=== PATIENT | female | born 1960 | race Caucasian/White ===

== ENCOUNTER 2021-03-21 10:56 | Emergency (ER) | payer OTHER ==
[~2021-03-21] VITALS: Ht 167.6 cm; Wt 54.4 kg
[2021-03-21 11:25] LABS: URINE BILIRUBIN NEGATIVE (Negative); URINE BLOOD NEGATIVE (Negative); URINE CLARITY CLEAR; URINE COLOR YELLOW; URINE GLUCOSE-RANDOM NEGATIVE (Negative); URINE KETONES NEGATIVE (Negative); URINE LEUKOCYTES-REFLEX NEGATIVE (Negative); URINE NITRITE-REFLEX NEGATIVE (Negative); URINE PROTEIN NEGATIVE (Negative); URINE UROBILINOGEN 0.2 E.U./dl (0.2-1.0)
[2021-03-21 12:02] LABS: ABSOLUTE BASOPHILS 0.1 thou/uL (0.0-0.2); ABSOLUTE EOSINOPHILS 0.1 thou/uL (0.0-0.7); ABSOLUTE LYMPHOCYTES 1.7 thou/uL (0.8-5.3); ABSOLUTE MONOCYTES 0.6 thou/uL (0.0-1.2); ABSOLUTE NEUTROPHILS 5.5 thou/uL (1.6-8.1); BASOPHILS 1.2 %; EOSINOPHILS 1.3 %; HEMATOCRIT 43.9 % (37.0-47.0); HEMOGLOBIN 14.4 gm/dL (12.0-15.0); LYMPHOCYTES 20.8 %; MCH 29.8 pg (26.0-34.0); MCHC 32.8 g/dL (28.0-37.0); MONOCYTES 7.6 %; NUCLEATED RBCS 0 /100WBC; PLATELET COUNT* 223 thou/uL (150-400); POLYS 69.1 %; RBC 4.82 mil/uL (4.20-5.00); RDW-CV 13.2 % (10.5-14.5)
[2021-03-21 12:16] LABS: CREATININE 0.8 mg/dL (0.6-1.3); POTASSIUM 3.8 mmol/L (3.5-5.1)
[2021-03-21 12:20] LABS: TOTAL BILIRUBIN 0.3 mg/dL (<0.1-1.0); TOTAL PROTEIN 7.3 g/dL (6.4-8.2)
[2021-03-21] MEDS ORDERED: NAPROSYN500 MG PO (13:27)
[2021-03-21] MEDS ORDERED: MEDROLDOSEPACK PO (13:27)
[2021-03-21] MEDS ORDERED: FLEXERIL PO (13:27)
[2021-03-21 13:49] VITALS: BP 156/91
== END 2021-03-21 13:49 | disposition home or self-care (01) ==
LOC: M.ERS 10:56
PROVIDERS: Nurse Practitioner Family
DX: M54.50 Low back pain, unspecified (principal); I10 Essential (primary) hypertension; J44.9 Chronic obstructive pulmonary disease, unspecified; Z88.5 Allergy status to narcotic agent; Z88.2 Allergy status to sulfonamides

== ENCOUNTER 2021-04-14 10:57 | Emergency (ER) | payer OTHER ==
[~2021-04-14] VITALS: Ht 170.2 cm; Wt 61.2 kg
[~2021-04-14 10:57] MED LIST: FLEXERIL PO; MEDROLDOSEPACK PO; NAPROSYN500 MG PO
[2021-04-14 11:31] LABS: URINE BLOOD 3+ (Negative); URINE CLARITY CLOUDY; URINE COLOR BROWN; URINE GLUCOSE-RANDOM NEGATIVE (Negative); URINE KETONES NEGATIVE (Negative); URINE NITRITE-REFLEX NEGATIVE (Negative); URINE PROTEIN 2+ (Negative); URINE SPECIFIC GRAVITY 1.025 (1.005-1.030)
[2021-04-14 11:34] LABS: URINE BILIRUBIN 1+ (Negative); URINE LEUKOCYTES-REFLEX 2+ (Negative)
[2021-04-14 11:35] LABS: ICTOTEST (BILI CONFIRMATORY) Negative (Negative)
[2021-04-14 11:40] LABS: BACTERIA-REFLEX >30 Many /HPF (None Seen); URINE RBC >20 Many /HPF (0-2); URINE WBC-REFLEX 0-5 Rare /HPF (0-5)
[2021-04-14 11:41] LABS: CASTS None Seen /LPF (None Seen); CRYSTALS None Seen /LPF (None Seen); MUCUS None Seen strn/LPF (None Seen); SQUAMOUS 4-10 Moderate /LPF (0-3)
[2021-04-14 12:00] LABS: ABSOLUTE EOSINOPHILS 0.2 thou/uL (0.0-0.7); ABSOLUTE LYMPHOCYTES 1.8 thou/uL (0.8-5.3); ABSOLUTE MONOCYTES 0.5 thou/uL (0.0-1.2); ABSOLUTE NEUTROPHILS 4.8 thou/uL (1.6-8.1); BASOPHILS 0.5 %; EOSINOPHILS 3.2 %; HEMATOCRIT 43.4 % (37.0-47.0); HEMOGLOBIN 14.3 gm/dL (12.0-15.0); MCHC 32.9 g/dL (28.0-37.0); MCV 91.3 fL (80.0-100.0); NUCLEATED RBCS 0 /100WBC; PLATELET COUNT* 212 thou/uL (150-400); POLYS 65.3 %; RBC 4.76 mil/uL (4.20-5.00); RDW-CV 13.1 % (10.5-14.5); WBC 7.4 thou/uL (4.0-11.0)
[2021-04-14 12:11] LABS: CREATININE 0.7 mg/dL (0.6-1.3); POTASSIUM 3.6 mmol/L (3.5-5.1)
[2021-04-14 12:16] LABS: TOTAL BILIRUBIN 0.4 mg/dL (<0.1-1.0); TOTAL PROTEIN 7.1 g/dL (6.4-8.2)
[2021-04-14] MEDS ORDERED: PROAIR HFA8.5 GM INH (12:22)
[2021-04-14] MEDS ORDERED: PREDNISONE 20 M20 MG PO (12:22)
[2021-04-14] MEDS ORDERED: CEPHALEXIN500 MG PO (12:22)
[2021-04-14 12:42] VITALS: BP 163/78
--- NOTE | 2021-04-15 15:17 | EKG ---
[place] [address] ELECTROCARDIOGRAM REPORT Name: DOLORESBETTYE Treva Room: [facility]#: [id number] Admission: 04/14/21 Attend Phys: Discharge: 04/14/21 Date of : 58 Date of Service: 04/14/21 1140 Report #: [id number] THIS REPORT FOR: //name// [facility] ED Test Date: 2021-04-14 Test Time: 11:40:50 Pat Name: BETTYE BERNAL Department: Room: Gender: Equipment Installation Professional: : 1960 Requested By: Ольга Vargas Order Number: [id number] MD: Tulio Gibbs Measurements Intervals [place] Rate: 102 P: 106 MN: 157 QRS: 86 QRSD: 83 T: 122 QT: 330 QTc: 430 Interpretive Statements Sinus tachycardia Borderline right axis deviation LVH with secondary repolarization abnormality Anterior Q waves, possibly due to LVH No previous ECG available for comparison Electronically Signed On 04-15-2021 15:16:59 [employer] by Tulio Gibbs [email or web address] <ELECTRONICALLY SIGNED> By: Tulio Gibbs MD, [facility] 04/15/21 1516 1140 1140 Tulio Gibbs MD, [facility] /EPI
== END 2021-04-14 12:43 | disposition home or self-care (01) ==
LOC: M.ERS 10:57
PROVIDERS: Physician Assistant
DX: N39.0 Urinary tract infection, site not specified (principal); J44.1 Chronic obstructive pulmonary disease with (acute) exacerbation; I10 Essential (primary) hypertension; Z98.890 Other specified postprocedural states; Z88.5 Allergy status to narcotic agent; Z88.2 Allergy status to sulfonamides

== ENCOUNTER 2021-06-17 08:02 | Emergency (ER) | payer MEDICAID ==
[~2021-06-17] VITALS: Ht 170.2 cm; Wt 59.0 kg
[~2021-06-17 08:02] MED LIST changes: +CEPHALEXIN500 MG PO; +PREDNISONE 20 M20 MG PO; +PROAIR HFA8.5 GM INH
[2021-06-17 11:20] VITALS: BP 142/99
== END 2021-06-17 11:20 | disposition home or self-care (01) ==
LOC: M.ERS 08:02
DX: T69.1XXA Chilblains, initial encounter (principal); M21.612 Bunion of left foot; M21.611 Bunion of right foot; L84 Corns and callosities; I10 Essential (primary) hypertension; J44.9 Chronic obstructive pulmonary disease, unspecified; F17.210 Nicotine dependence, cigarettes, uncomplicated; Z86.73 Personal history of transient ischemic attack (TIA), and cerebral infarction without residual deficits; Z90.89 Acquired absence of other organs; Z88.5 Allergy status to narcotic agent; Z88.2 Allergy status to sulfonamides